=== PATIENT | female | born 1965 | race Asian ===

== ENCOUNTER → 2018-01-07 | Day surgery (SDC) | payer BC ==
[~2018-01-07] MED LIST: LIDOCAINE 2% PF Vial for OR 5 ML VIAL.; PROPOFOL 40 ML IV
[2018-01-07] MEDS: IV RINGERS,LACTATED 1000ML 1,000 ML IV (08:15)
[2018-01-07 08:16] LABS: POC GLUCOSE 98 mg/dL (70-99)
== END | disposition home or self-care (01) ==
LOC: SURG 07:30
DX: K29.50 Unspecified chronic gastritis without bleeding (principal); R63.4 Abnormal weight loss; I10 Essential (primary) hypertension; D50.0 Iron deficiency anemia secondary to blood loss (chronic); E11.40 Type 2 diabetes mellitus with diabetic neuropathy, unspecified; Z90.710 Acquired absence of both cervix and uterus; Z98.890 Other specified postprocedural states; Z88.6 Allergy status to analgesic agent; Z79.84 Long term (current) use of oral hypoglycemic drugs; Z79.899 Other long term (current) drug therapy; Z90.79 Acquired absence of other genital organ(s); Z90.721 Acquired absence of ovaries, unilateral
CPT/HCPCS: 43239; 45378; 82962; 88305; 88342; J2001; J2704